=== PATIENT | male | born 1970 | race American Indian/Alaskan Native ===

== ENCOUNTER 2019-01-31 14:09 | Inpatient (IN) | payer MEDICAID, OTHER ==
[2019-01-31 14:19] VITALS: O2SAT 97
--- NOTE | 2019-01-31 15:10 | ED PDOC ---
HPI: Psych/Substance Abuse Time Seen by Provider: 01/31/19 14:39 Chief Complaint (Nursing): Psychiatric Evaluation Chief Complaint (Provider): Anxiety Additional Complaint(s): Pt presents for anxiety X weeks, cannot sleep. Denies suicidal or homicidal ideation. Past Medical History Reviewed: Nursing Documentation, Vital Signs Vital Signs: Last Vital Signs Temp 98.6 F 01/31/19 14:18 Pulse 96 H 01/31/19 14:18 Resp 16 01/31/19 14:18 BP 113/69 01/31/19 14:18 Pulse Ox 97 01/31/19 14:18 - Medical History PMH: Depression - Family History Family History: States: Unknown Family Hx - Social History Current smoker - smoking cessation education provided: No Drugs: Cannabis - Immunization History Hx Tetanus Toxoid Vaccination: No Hx Influenza Vaccination: No Hx Pneumococcal Vaccination: No - Home Medications Home Medications: Ambulatory Orders Medication Instructions Recorded No Known Home Med 05/26/17 - Allergies Allergies/Adverse Reactions: Allergies Allergy/AdvReac Type Severity Reaction Status Date / Time No Known Allergies Allergy Verified 05/26/17 14:45 Review of Systems Psych: Positive for: Anxiety. Negative for: Suicidal ideation Physical Exam - Reviewed Nursing Documentation Reviewed: Yes Vital Signs Reviewed: Yes - Physical Exam Appears: Positive for: Well, No Acute Distress Head Exam: Positive for: ATRAUMATIC, NORMAL INSPECTION Skin: Positive for: Normal Color, Warm, Dry, Rash (Edema L upper lip, minimal induration superior to L upper lip c/w folliculitis, no fluctuance) Eye Exam: Positive for: Normal appearance, EOMI, PERRL Cardiovascular/Chest: Positive for: Regular Rate, Rhythm Respiratory: Positive for: Normal Breath Sounds Extremity: Positive for: Normal ROM Lymphatic: Positive for: Adenopathy (L anterior cervical) Neurological/Psych: Positive for: Awake, Alert, Oriented - Laboratory Results Result Diagrams: 01/31/19 19:25 01/31/19 19:25 - ECG O2 Sat by Pulse Oximetry: 97 Medical Decision Making Medical Decision Makin yo male with anxiety. - Crisis evaluation Disposition - Clinical Impression Clinical Impression: Depression - Disposition Disposition: Transfer of Care Disposition Time: 19:00 Condition: STABLE Patient Signed Over To: Jake Whyte
[2019-01-31] MEDS ORDERED: Tmp-Smz 800 mg-160 mg DS Tab PO STA (18:40)
--- NOTE | 2019-01-31 19:30 | ED PDOC ---
- Laboratory Results Result Diagrams: 01/31/19 19:25 01/31/19 19:25 - ECG O2 Sat by Pulse Oximetry: 97 Medical Decision Making Medical Decision Makin Patient care endorsed from Dr. Starks to this provider pending labs and crisis evaluation. 2048 CXR shows no active disease. Patient evaluated by crisis and will be admitted for depression as per Dr. Galeana. Patient medically stable for psychiatric admission. Scribe Attestation: Documented by Bijal Dykes, acting as a scribe for Jake Whyte MD. Provider Scribe Attestation: All medical record entries made by the Scribe were at my direction and personally dictated by me. I have reviewed the chart and agree that the record accurately reflects my personal performance of the history, physical exam, medical decision making, and the department course for this patient. I have also personally directed, reviewed, and agree with the discharge instructions and disposition. Disposition - Clinical Impression Clinical Impression: Depression - POA Present On Arrival: None - Disposition Disposition: Routine/Home Disposition Time: 21:00 Condition: FAIR
[2019-01-31 19:36] LABS: BASO % 0.5 % (0.0-2.0); EOS # 0.1 K/uL (0.0-0.7); EOS % 1.8 % (0.0-4.0); HEMOGLOBIN 13.7 g/dL (12.0-18.0); LYMPH # 1.9 K/uL (1.0-4.3); LYMPH % 28.6 % (20.0-40.0); MEAN CELL VOLUME 87.2 fl (80.0-94.0); MEAN CORPUSCULAR HEMOGLOBIN 28.4 pg (27.0-31.0); MEAN CORPUSCULAR HGB CONC 32.5 g/dL (33.0-37.0); MEAN PLATELET VOLUME 11.9 fl (7.2-11.7); MONO # 0.7 K/uL (0.0-0.8); MONO % 9.7 % (0.0-10.0); NEUT % 59.4 % (50.0-75.0); RBC 4.81 Mil/uL (4.40-5.90); RED CELL DISTRIBUTION WIDTH 13.8 % (11.5-14.5); WHITE BLOOD COUNT 6.8 K/uL (4.8-10.8)
[2019-01-31 19:45] LABS: ACETAMINOPHEN < 10.0 ug/ml (10.0-30.0); SALICYLATE < 1.0 mg/dl
[2019-01-31 19:47] LABS: ALB/GLOB RATIO 1.2 (1.0-2.1); ALBUMIN 4.3 g/dL (3.5-5.0); ALT/SGPT 19 U/L (21-72); AST/SGOT 18 U/L (17-59); BLOOD UREA NITROGEN 17 mg/dl (9-20); CALCIUM 9.3 mg/dL (8.4-10.2); GFR NON-AFRICAN AMERICAN > 60
[2019-01-31] MEDS ORDERED: Tmp-Smz 800 mg-160 mg DS Tab ONE (19:53)
[2019-01-31 20:35] LABS: SQUAMOUS EPITHIAL < 1 /hpf (0-5); URINE BACTERIA RARE (<OCC); URINE BILIRUBIN NEGATIVE (NEGATIVE); URINE BLOOD NEGATIVE (NEGATIVE); URINE CLARITY SLIGHTY-CLOUDY (Clear); URINE COLOR YELLOW (YELLOW); URINE GLUCOSE (UA) NEG (NEGATIVE); URINE LEUKOCYTE ESTERASE NEG Leu/uL (Negative); URINE PROTEIN 30 mg/dL (NEGATIVE)
[2019-01-31 20:41] LABS: BARBITURATES, UR NEGATIVE (NEGATIVE); BENZODIAZEPINES, UR NEGATIVE (NEGATIVE); OPIATES, UR NEGATIVE (NEGATIVE); PHENCYCLIDINE, UR NEGATIVE (NEGATIVE)
[2019-01-31] MEDS ORDERED: DiphenhydrAMINE 50 mg/ml Inj IM PRN (23:14)
[2019-01-31] MEDS ORDERED: Alum-Mag Hydrox-Simethicone Susp (30 mL) PO PRN (23:14)
[2019-01-31] MEDS ORDERED: Magnesium Hydroxide Susp 30 ml UD PO PRN (23:14)
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
--- NOTE | 2019-02-01 08:12 | CARD ---
APPROVED REPORT Date of service: 01/31/2019 EKG Measurement Heart [id number] <Conclusion> Normal sinus rhythm Possible Left atrial enlargement Right axis deviation Possible septal infarct, age undetermined Non specific T-wave changes Abnormal ECG
--- NOTE | 2019-02-01 10:43 | RAD ---
Date of service: 01/31/2019 HISTORY: Medical clearance COMPARISON: No prior. FINDINGS: LUNGS: The lungs are well inflated and clear. PLEURA: No pleural effusions or pneumothorax. CARDIOVASCULAR: The heart is normal in size. No aortic atherosclerotic calcifications present. OSSEOUS STRUCTURES: Within normal limits for the patient's age. VISUALIZED UPPER ABDOMEN: Normal. OTHER FINDINGS: None. IMPRESSION: No active pulmonary disease.
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
--- NOTE | 2019-02-01 15:19 | CP.PCM.CON ---
History of Present Illness - History of Present Illness History of Present Illness: Reason for Consult: Per hospital protocol HPI: 48M hx depression, admitted for suicidal ideation. No other complaints at this time. HD stable, NAD. ROS: Per HPI, all other systems reviewed and neg Past Patient History - Infectious Disease Hx of Infectious Diseases: None - Past Social History Drugs: Cannabis - CARDIAC Hx Cardiac Disorders: No Hx Hypertension: No - PULMONARY Hx Respiratory Disorders: No Hx Tuberculosis: No - NEUROLOGICAL Hx Neurological Disorder: No HX Cerebrovascular Accident: No Hx Seizures: No - HEENT Hx HEENT Problems: No - RENAL Hx Chronic Kidney Disease: No - ENDOCRINE/METABOLIC Hx Endocrine Disorders: No - HEMATOLOGICAL/ONCOLOGICAL Hx Blood Disorders: No Hx Cancer: No Hx Human Immunodeficiency Virus (HIV): No - INTEGUMENTARY Hx Dermatological Problems: No - MUSCULOSKELETAL/RHEUMATOLOGICAL Hx Musculoskeletal Disorders: No - GASTROINTESTINAL Hx Gastrointestinal Disorders: No - GENITOURINARY/GYNECOLOGICAL Hx Genitourinary Disorders: No Hx Sexually Transmitted Disorders: No - PSYCHIATRIC Hx Substance Use: Yes (marijuana, cocaine) - SURGICAL HISTORY Hx Surgeries: No - ANESTHESIA Hx Anesthesia: No Meds Allergies/Adverse Reactions: Allergies Allergy/AdvReac Type Severity Reaction Status Date / Time No Known Allergies Allergy Verified 05/26/17 14:45 - Medications Medications: Current Medications Acetaminophen (Tylenol 325mg Tab) 650 mg PO Q4 PRN PRN Reason: pain level 4-7 Al Hydrox/Mg Hydrox/Simethicone (Maalox Plus 30 Ml) 30 ml PO Q4 PRN PRN Reason: Dyspepsia Diphenhydramine HCl (Benadryl) 50 mg IM Q6 PRN PRN Reason: Extrapyramidal S/S Unable PO Diphenhydramine HCl (Benadryl) 50 mg PO Q6 PRN PRN Reason: Extrapyramidal Symptoms Diphenhydramine HCl (Benadryl) 50 mg PO HS PRN PRN Reason: Sleep Haloperidol (Haldol) 5 mg PO Q4 PRN PRN Reason: Agitation Haloperidol Lactate (Haldol) 5 mg IM Q4 PRN PRN Reason: Agitation, Unable to Take PO Lorazepam (Ativan) 2 mg IM Q8H PRN PRN Reason: Anxiety/Agitation,Unable PO Lorazepam (Ativan) 1 mg PO Q8H PRN PRN Reason: Anxiety/Agitation Magnesium Hydroxide (Milk Of Magnesia) 30 ml PO HS PRN PRN Reason: Constipation Sertraline HCl (Zoloft) 25 mg PO DAILY [facility] Last Admin: 02/01/19 12:55 Dose: 25 mg Trazodone HCl (Desyrel) 50 mg PO HS [facility] Physical Exam - Constitutional Additional comments: Vitals Reviewed GEN: WDWN, alert, cooperative HEENT: NCAT, PERRL, EOMI HEART: RRR, +S1S2, NO MRG LUNG: CTAB, NO WRR ABD: soft, NT, ND, No HSM, No masses EXT: normal pedal pulses NEURO: awake, alert SKIN: warm, dry PSYCH: normal mood, normal affect Results - Vital Signs Recent Vital Signs: Last Vital Signs Temp 98.0 F 02/01/19 09:00 Pulse 71 02/01/19 09:00 Resp 18 02/01/19 09:00 BP 131/72 02/01/19 09:00 Pulse Ox 97 02/01/19 05:44 - Labs Result Diagrams: 01/31/19 19:25 01/31/19 19:25 Labs: Laboratory Results - last 24 hr 01/31/19 01/31/19 01/31/19 19:25 19:25 19:25 WBC 6.8 RBC 4.81 Hgb 13.7 Hct 42.0 MCV 87.2 MCH 28.4 MCHC 32.5 L RDW 13.8 Plt Count 121 L MPV 11.9 H Neut % (Auto) 59.4 Lymph % (Auto) 28.6 Walker % (Auto) 9.7 Eos % (Auto) 1.8 Baso % (Auto) 0.5 Neut # (Auto) 4.0 Lymph # (Auto) 1.9 Walker # (Auto) 0.7 Eos # (Auto) 0.1 Baso # (Auto) 0.0 Sodium 139 Potassium 3.5 L Chloride 100 Carbon Dioxide 27 Anion Gap 16 BUN 17 Creatinine 1.0 Est GFR ( Amer) > 60 Est GFR (Non-Af Amer) > 60 Random Glucose 101 Hemoglobin A1c Calcium 9.3 Total Bilirubin 0.9 AST 18 ALT 19 L Alkaline Phosphatase 62 Total Protein 7.8 Albumin 4.3 Globulin 3.5 Albumin/Globulin Ratio 1.2 Triglycerides Cholesterol LDL Cholesterol Direct HDL Cholesterol Thyroxine (T4) TSH 3rd Generation Urine Color Urine Clarity Urine pH Ur Specific [place] Urine Protein Urine Glucose (UA) Urine Ketones Urine Blood Urine Nitrate Urine Bilirubin Urine Urobilinogen Ur Leukocyte Esterase Urine RBC (Auto) Urine Microscopic WBC Ur Squamous Epith Cells Urine Bacteria Salicylates < 1.0 Urine Opiates Screen Urine Methadone Screen Acetaminophen < 10.0 L Ur Barbiturates Screen Ur Phencyclidine Scrn Ur Amphetamines Screen U Benzodiazepines Scrn U Oth Cocaine Metabols U Cannabinoids Screen Alcohol, Quantitative < 10 01/31/19 01/31/19 02/01/19 19:35 19:50 07:36 WBC RBC Hgb Hct MCV MCH MCHC RDW Plt Count MPV Neut % (Auto) Lymph % (Auto) Walker % (Auto) Eos % (Auto) Baso % (Auto) Neut # (Auto) Lymph # (Auto) Walker # (Auto) Eos # (Auto) Baso # (Auto) Sodium Potassium Chloride Carbon Dioxide Anion Gap BUN Creatinine Est GFR ( Amer) Est GFR (Non-Af Amer) Random Glucose Hemoglobin A1c Calcium Total Bilirubin AST ALT Alkaline Phosphatase Total Protein Albumin Globulin Albumin/Globulin Ratio Triglycerides 84 Cholesterol 244 H LDL Cholesterol Direct 144 H HDL Cholesterol 57 Thyroxine (T4) 8.46 TSH 3rd Generation 1.72 Urine Color Yellow Urine Clarity Slighty-cloudy Urine pH 6.0 Ur Specific [place] 1.031 H Urine Protein 30 Urine Glucose (UA) Neg Urine Ketones Negative Urine Blood Negative Urine Nitrate Negative Urine Bilirubin Negative Urine Urobilinogen 2.0 Ur Leukocyte Esterase Neg Urine RBC (Auto) 2 Urine Microscopic WBC 2 Ur Squamous Epith Cells < 1 Urine Bacteria Rare Salicylates Urine Opiates Screen Negative Urine Methadone Screen Negative Acetaminophen Ur Barbiturates Screen Negative Ur Phencyclidine Scrn Negative Ur Amphetamines Screen Negative U Benzodiazepines Scrn Negative U Oth Cocaine Metabols Positive H U Cannabinoids Screen Positive H Alcohol, Quantitative 02/01/19 07:36 WBC RBC Hgb Hct MCV MCH MCHC RDW Plt Count MPV Neut % (Auto) Lymph % (Auto) Walker % (Auto) Eos % (Auto) Baso % (Auto) Neut # (Auto) Lymph # (Auto) Walker # (Auto) Eos # (Auto) Baso # (Auto) Sodium Potassium Chloride Carbon Dioxide Anion Gap BUN Creatinine Est GFR ( Amer) Est GFR (Non-Af Amer) Random Glucose Hemoglobin A1c 5.6 Calcium Total Bilirubin AST ALT Alkaline Phosphatase Total Protein Albumin Globulin Albumin/Globulin Ratio Triglycerides Cholesterol LDL Cholesterol Direct HDL Cholesterol Thyroxine (T4) TSH 3rd Generation Urine Color Urine Clarity Urine pH Ur Specific [place] Urine Protein Urine Glucose (UA) Urine Ketones Urine Blood Urine Nitrate Urine Bilirubin Urine Urobilinogen Ur Leukocyte Esterase Urine RBC (Auto) Urine Microscopic WBC Ur Squamous Epith Cells Urine Bacteria Salicylates Urine Opiates Screen Urine Methadone Screen Acetaminophen Ur Barbiturates Screen Ur Phencyclidine Scrn Ur Amphetamines Screen U Benzodiazepines Scrn U Oth Cocaine Metabols U Cannabinoids Screen Alcohol, Quantitative Assessment & Plan - Assessment and Plan (Free Text) Plan: 48M hx depression, admitted for suicidal ideation. No other complaints at this time. HD stable, NAD. Depression Management per psych
--- NOTE | 2019-02-02 18:04 | PCM.PYCHPN ---
Psychiatric Progress Note - Psychiatric Progress Note Patient seen today, length of contact: chart reviewed case discussed with team Patient Chief Complaint: feeling depressed suicidal thoughts difficulty sleeping Problems Identified/Issues Discussed: alteration in mood alteration in coping alteration in self care alteration in sleep Medical Problems: pt seen by hospitalist Diagnostic Results: per psychiatry per medicine per social work per recreational therapy DSM 5 Symptoms Update: some improvement mood continues with reported insomnia sleeping less than 3-4 hours reports in past quetiapine helped with irritability as well as improved sleep without reported side effects Medication Change: Yes (seroquel 25mg po hs) Medical Record Reviewed: Yes Consults ordered or reviewed: pt seen by hospitalist Mental Status Examination - Cognitive Function Orientation: Person, Place, Situation Attention: WNL Concentration: WNL Association: WNL Fund of Knowledge: WN Decription of patient's judgement and insights: impaired - Mood Mood: Depressed, Anxious - Affect Affect: Constricted, Depressed - Formal Thought Process Formal Thought Process: Circumstantial - Homicidal Ideation Homicidal Ideation: No Goal/Treatment Plan - Goal/Treatment Plan Progress Toward Problem(s) and Goals/Treatment Plan: inpt milieu vital signs and clinical assessment per protocol and per clinical status start pt quitiapine 25mg po hs review sleep hygiene discharge planning in progress Estimated Date of D/C: 02/09/19 - Smoking Cessation Smoking Cessation Initiated: No Reason for not providing: pt defers
--- NOTE | 2019-02-03 08:20 | PCM.PYCHPN ---
Psychiatric Progress Note - Psychiatric Progress Note Patient seen today, length of contact: Pt evaluated, case discussed w/ team, chart reviewed Patient Chief Complaint: Depression Problems Identified/Issues Discussed: Patient reports that he continues to feel depressed. He states that he wants to start taking Wellbutrin instead of Zoloft because he feels it was helpful for him in the past. He also reports that he was on higher doses of Seroquel in the past, which he found effect. He reports that he was having passive wishes that he would not wake up, but denies active suicidal ideation/plan/intent. +Poor sleep +Poor appetite Medication Change: Yes (Increase Seroquel; stop Zoloft, start Wellbutrin) Medical Record Reviewed: Yes Consults ordered or reviewed: Medicine consult Mental Status Examination - Cognitive Function Orientation: Person, Place, Situation, Time Memory: Intact Attention: WNL Concentration: WNL Association: WNL Fund of Knowledge: [facility] Decription of patient's judgement and insights: Improving I/J - Mood Mood: Depressed, Anxious - Affect Affect: Constricted, Depressed - Formal Thought Process Formal Thought Process: No Impairment Psychotic Thoughts and Behaviors: No AH/VH/paranoia/delusions - Suicidal Ideation Suicidal Ideation: No - Homicidal Ideation Homicidal Ideation: No Goal/Treatment Plan - Goal/Treatment Plan Need for Continued Stay: Remain at risks for inpatient hospitalization, Severe depression anxiety Progress Toward Problem(s) and Goals/Treatment Plan: Depressive Disorder (MDD vs substance induced mood disorder), Cocaine and Cannabis Use Disorder -Stop Zoloft -Increase Seroquel -Start Wellbutrin -Individual and group therapy -Psychoeducation -Medicine consult -Disposition planning
[2019-02-03] MEDS: buPROPion SR 150 MG TABLET PO SCH (10:00)
[2019-02-04] MEDS: buPROPion SR 150 MG TABLET PO SCH (08:48)
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
[2019-02-05] MEDS: buPROPion SR 150 MG TABLET PO SCH (09:39)
--- NOTE | 2019-02-05 18:38 | PCM.PYCHPN ---
Psychiatric Progress Note - Psychiatric Progress Note Patient seen today, length of contact: Pt evaluated, case discussed w/ team, chart reviewed Patient Chief Complaint: continues to have trouble sleeping reportedly repetitive thoughts while trying to sleep had seroquel increased to 100mg with minimal benefit. denies side effects from seroquel. staff report pt rx adherent seen about unit. r Problems Identified/Issues Discussed: alteration in mood alteration in coping alteration in self care alteration in sleep Medical Problems: pt seen by hospitalist Diagnostic Results: per psychiatry per medicine per social work per recreational therapy DSM 5 Symptoms Update: no suicidal thoughts preoccupation discharge follow up plan Medication Change: Yes (Increase Seroquel to 150 mg po hs) Medical Record Reviewed: Yes Consults ordered or reviewed: pt seen by hospitalist Mental Status Examination - Cognitive Function Orientation: Person, Place, Situation, Time Memory: Intact Attention: WNL Concentration: WNL Association: WNL Fund of Knowledge: WN Decription of patient's judgement and insights: impaired - Mood Mood: Depressed, Anxious - Affect Affect: Constricted, Depressed - Speech Speech: Soft - Formal Thought Process Formal Thought Process: No Impairment - Suicidal Ideation Suicidal Ideation: No - Homicidal Ideation Homicidal Ideation: No Goal/Treatment Plan - Goal/Treatment Plan Need for Continued Stay: Remain at risks for inpatient hospitalization, Severe depression anxiety Progress Toward Problem(s) and Goals/Treatment Plan: inpt milieu vital signs and clinical assessment per protocol and per clinical status increase seroquel to 150mg po hs get up slowly review sleep hygiene discharge planning in progress Estimated Date of D/C: 02/09/19 - Smoking Cessation Smoking Cessation Initiated: No Reason for not providing: pt defers
[2019-02-06] MEDS: buPROPion SR 150 MG TABLET PO SCH (09:07)
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
[2019-02-07] MEDS: buPROPion SR 150 MG TABLET PO SCH (08:13)
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
[2019-02-08] MEDS: buPROPion SR 150 MG TABLET PO SCH (08:17)
--- NOTE | 2019-02-08 13:09 | PCM.PYCHPN ---
Psychiatric Progress Note - Psychiatric Progress Note Patient seen today, length of contact: Pt evaluated, case discussed w/ team, chart reviewed Patient Chief Complaint: I feel better today Problems Identified/Issues Discussed: pt evaluated, stated feeling less anxious with the neurontin, improved mood and brighter affect with the increase in seroquel, no reported side effects , pt observed interacting with staff and other peers, no reported changes in appetite, denied any current thoughts of self ham Medical Problems: history of at least two hospitalizations, non compliant wit follow up DSM 5 Symptoms Update: depression cocaine abuse cannabis abuse ptsd Medication Change: No Medical Record Reviewed: Yes Mental Status Examination - Cognitive Function Orientation: Person, Place, Situation, Time Memory: Intact Attention: WNL Concentration: WNL Association: WNL Fund of Knowledge: WNL - Mood Mood: Anxious - Affect Affect: Constricted, Depressed - Speech Speech: Soft - Formal Thought Process Formal Thought Process: No Impairment - Suicidal Ideation Suicidal Ideation: No - Homicidal Ideation Homicidal Ideation: No Goal/Treatment Plan - Goal/Treatment Plan Need for Continued Stay: Remain at risks for inpatient hospitalization, Severe depression anxiety Progress Toward Problem(s) and Goals/Treatment Plan: neurontin 100mg tid continue with wellbutrin seroquel 300mg qhs motivational group and supportive therapy Estimated Date of D/C: 02/09/19
[2019-02-09] MEDS: buPROPion SR 150 MG TABLET PO SCH (09:05)
[2019-02-09 09:11] VITALS: RESP 18
[2019-02-09 09:25] VITALS: BP 116/79; PULSE 76; TEMP 98.2
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
== END 2019-02-09 14:58 | disposition home or self-care (01) | DRG 426 ==
LOC: H.ER 14:09 → H.ERHOLD 20:47 → H.PSYCH 22:55
PROVIDERS: ADMIT Psychiatry & Neurology Psychiatry; ATTEND Psychiatry & Neurology Psychiatry
PROC: GZHZZZZ Group Psychotherapy (ICD-10-PCS; principal; 2019-01-31)
PROC: GZ58ZZZ Individual Psychotherapy, Cognitive-Behavioral (ICD-10-PCS; 2019-01-31)
PROC: HZ52ZZZ Individual Psychotherapy for Substance Abuse Treatment, Cognitive-Behavioral (ICD-10-PCS; 2019-01-31)
DX: F32.9 Major depressive disorder, single episode, unspecified (principal); F14.10 Cocaine abuse, uncomplicated; F43.10 Post-traumatic stress disorder, unspecified; R45.851 Suicidal ideations; F12.10 Cannabis abuse, uncomplicated; G47.00 Insomnia, unspecified; Z91.14 Patient's other noncompliance with medication regimen; Z91.19 Patient's noncompliance with other medical treatment and regimen; Z79.899 Other long term (current) drug therapy